=== PATIENT | male | born 1995 | race Two or more races ===

== ENCOUNTER 2024-02-22 10:24 | Emergency (ER) | payer BC ==
[~2024-02-22] VITALS: Ht 182.9 cm; Wt 133.5 kg
[2024-02-22 15:31] VITALS: BP 145/89; PULSE 118; RESP 18; O2SAT 96
== END 2024-02-22 15:33 | disposition home or self-care (01) ==
LOC: ER 10:25
DX: R05.9 Cough, unspecified (principal)
CPT/HCPCS: 71046; 99283